=== PATIENT | female | born 1995 | race African-American/Black ===

== ENCOUNTER 2018-02-23 20:04 | Emergency (ER) | payer BC ==
[~2018-02-23] VITALS: Ht 175.3 cm; Wt 80.7 kg
[2018-02-23] MEDS ORDERED: NORFLEX100 MG PO (20:48)
[2018-02-23] MEDS ORDERED: MOBIC7.5 MG PO (20:48)
[2018-02-23 21:20] VITALS: BP 114/70
== END 2018-02-23 21:28 | disposition home or self-care (01) ==
LOC: ER 20:04
DX: M62.830 Muscle spasm of back (principal)